=== PATIENT | male | born 1955 | race Caucasian/White ===

== ENCOUNTER → 2019-04-28 | Outpatient (REF) | payer BC ==
[2019-04-28 13:47] LABS: APPEARANCE, URINE CLEAR (CLEAR); BACTERIA, URINE AUTO NEGATIVE (NEGATIVE); BILIRUBIN, URINE AUTO NEGATIVE (NEGATIVE); BLOOD, URINE BLOOD NEGATIVE (NEGATIVE); COLOR, URINE YELLOW (YELLOW); GLUCOSE, URINE (UA) AUTO NEGATIVE (NEGATIVE); KETONE, URINE AUTO NEGATIVE (NEGATIVE); LEUKOCYTE ESTERASE, URINE AUTO NEGATIVE (NEGATIVE); MUCUS, URINE SMALL (NEGATIVE); NITRITE, URINE AUTO NEGATIVE (NEGATIVE); PROTEIN, URINE AUTO NEGATIVE (NEGATIVE); RBC, URINE AUTO 0 /HPF (0-3); SPECIFIC GRAVITY URINE AUTO 1.025 (1.002-1.035); SQUAMOUS EPITHELIAL CELL UR AU 0 /HPF (0-6); UROBILINOGEN, URINE AUTO 0.2 mg/dL (0.0-2.0); WBC, URINE AUTO 1 /HPF (0-3)
== END ==
LOC: M SMT 13:07
PROVIDERS: ATTEND Nurse Practitioner Women's Health
DX: R97.20 Elevated prostate specific antigen [PSA] (principal); R35.0 Frequency of micturition

== ENCOUNTER → 2019-05-05 | Outpatient (CLI) | payer BC ==
--- NOTE | 2019-05-05 13:01 | REPPI ---
Prostate sonography: History: Elevated PSA. Sonographic findings: Trans rectal prostate sonography demonstrates unremarkable seminal vesicles. Prostate gland is heterogeneously enlarged with calcifications and cystic changes noted. Glandular dimensions are measured at 4.8 x 4.8 x 5.2 cm with a calculated glandular volume of 62.0 ml. There is a 7 mm hypoechoic area in the left mid lateral gland. Transrectal sonographic guidance is provided to Dr. English who performed trans rectal ultrasound guided needle biopsy procedure . Electronically Signed by Kb Austin MD 05/05/2019 12:52 P
== END ==
LOC: M SMT PRO 10:19
PROVIDERS: ATTEND Urology
DX: C61 Malignant neoplasm of prostate (principal)
CPT/HCPCS: 76872; 76942; G0416

== ENCOUNTER → 2019-07-02 | Outpatient (CLI) | payer OTHER ==
[~2019-07-02] MED LIST: ATOR40TA75 PO; OMEP-218 PO; SILD100T PO
--- NOTE | 2019-07-02 13:25 | RADONC ---
RADIATION ONCOLOGY CONSULTATION NOTE BY TELEPHONE This is a telemedicine visit. The patient was informed of the risks including security breech, technological failure, inability to perform a comprehensive physical exam which could delay or prevent an accurate diagnosis, and potential complications from treatment decisions rendered over a telemedicine platform. The patient understands and consented to the use of telehealth services phone only. DATE: 07/02/2019 CHART #: [id number] DIAGNOSIS: Prostate cancer. STAGE: I, T1c, N0, M0, Elena score 6 (3-3), grade group 1, PSA 4.7. ECOG PERFORMANCE STATUS: 0. CONSULTATION NOTE: Mr. Cartwright is a very pleasant 64-year-old white male with the diagnosis of what appears to be a stage I, T1c, N0, M0, moderately differentiated, Chilmark score 6 (3-3) adenocarcinoma of the prostate, grade group 1, with an initial PSA of 4.7, who is presenting to us today for consideration of definitive external beam radiation therapy with IMRT/IGRT. HISTORY OF PRESENT ILLNESS: The patient was in his usual state of health, but was found to have an elevated PSA which reached a level of 4.7. On 05/05/2019, the patient underwent prostatic needle biopsy and pathology revealed a Elnea score 6 (3-3) adenocarcinoma of the left base of the prostate involving 5-10% of the core. The patient was seen by his urologist and active surveillance was discussed. Unfortunately, his father had prostate cancer and he is quite nervous and does not wish to undergo surveillancel, but wants active treatment with external beam radiation. PAST MEDICAL HISTORY: The patient's past medical history is positive for erectile dysfunction. He has a history of GERD. He has hypercholesterolemia and obstructive sleep apnea. He had an umbilical hernia and a hydrocele of the testis. The patient had a vasectomy in the past. ALLERGIES: The patient has NO KNOWN DRUG ALLERGIES. SOCIAL HISTORY: The patient does not smoke cigarettes nor abuse alcohol. FAMILY HISTORY: The patient's family history is positive for father with prostate cancer, a paternal uncle with colon cancer, another paternal uncle with prostate cancer, and a sister with leukemia. REVIEW OF SYSTEMS: The patient's review of systems is noncontributory. Denies nausea, vomiting, fevers, chills, night sweats, diplopia, headaches, anxiety or depression, anorexia, weight loss, visual disturbances, chest pain, urinary or bowel difficulties, bone pain, or neurological problems. PHYSICAL EXAMINATION: Physical examination was deferred as this was a telephone consultation as per COVID-19 precautions. MEDICAL NECESSITY: IMRT/IGRT is clinically indicated for the highly conformal dose planning required. The target volume is in close proximity to critical structures, such as the rectum, bladder, small bowel, and femoral heads. The volume of interest must be covered with narrow margins to adequately protect immediately adjacent structures. The plan requires interpretation of complex testing such as CT localization. As noted above, special planning (IMRT) and localizing (IGRT) is required and essential to maximally protect sensitive normal tissue structures which cannot be accomplished using conventional 3-dimensional planning. ASSESSMENT: I do believe this patient is a candidate for external beam radiation therapy and have so informed him. I have discussed with the patient in detail the potential benefits as well as possible acute and chronic sequelae of external beam radiation therapy. We have discussed logistics of treatment planning, simulation and subsequent fractionated daily radiation treatments. The patient is scheduled for placement of fiducial markers on 07/07/2019. In light of this, we will be scheduling him for simulation and initiation of treatment planning approximately 2-3 weeks post fiducial marker placement. Thank you for allowing us to participate in the care of this very pleasant gentleman. If I can be of any further assistance, please feel free to contact me at anytime. As always, warm regards. cc: MD Benjy Najera MD
== END ==
LOC: M ONCR 09:02
PROVIDERS: ATTEND Radiology Radiation Oncology
DX: C61 Malignant neoplasm of prostate (principal)

== ENCOUNTER → 2019-07-07 | Outpatient (CLI) | payer MEDICARE, OTHER ==
--- NOTE | 2019-07-07 12:53 | REPPI ---
TRANSRECTAL PROSTATE ULTRASOUND FOR FIDUCIARY MARKER PLACEMENT: Transrectal prostate ultrasound guidance was provided for Dr. English, who placed three fiduciary markers, one in the right base, one in the left base, and one in the midline at the apex. Electronically Signed by Julito Fallon MD 07/07/2019 04:59 P
== END ==
LOC: M SMT PRO 09:30
PROVIDERS: ATTEND Urology
DX: C61 Malignant neoplasm of prostate (principal)
CPT/HCPCS: 55876; 76872; 76942; A4648

== ENCOUNTER 2019-08-14 08:43 | Outpatient (RCR) | payer MEDICARE, OTHER ==
--- NOTE | 2019-07-24 08:13 | RADONC ---
RADIATION ONCOLOGY SIMULATION NOTE DATE: 07/21/2019 CHART #: [id number] Mr. Cartwright was taken to the CT scan for CT simulation of his prostate field. CT was accomplished without difficulty or discomfort. Radiation treatment planning is underway and radiation treatments will begin subsequently. An immobilization device was created and will be used throughout the course of treatment. It was created without difficulty or discomfort. I was physically present throughout the course of CT simulation.
--- NOTE | 2019-08-05 07:38 | RADONC ---
RADIATION ONCOLOGY PROGRESS NOTE DATE: 08/03/2019 CHART #: [id number] Mr. Cartwright underwent his first fraction of radiation today to his prostate for a dose of 180 cGy. Radiation was tolerated without difficulty or discomfort. REVIEW OF SYSTEMS: The patient's review of systems is noncontributory. Denies nausea, vomiting, fevers, chills, night sweats, diplopia, headaches, anxiety or depression, anorexia, weight loss, visual disturbances, chest pain, urinary or bowel difficulties, bone pain, or neurological problems. PHYSICAL EXAMINATION: The patient's physical exam clearly showed no evidence of radiation change present since this was his first treatment. The remainder of his physical exam was also unchanged. Mr. Cartwright underwent his first fraction of radiation and tolerated it well. Treatments will continue as scheduled.
--- NOTE | 2019-08-14 17:27 | RADONC ---
RADIATION ONCOLOGY PROGRESS NOTE DATE: 08/11/2019 CHART NUMBER: [id number] PROGRESS NOTE: Mr. Cartwright is presently at a dose of 1087 cGy to his prostate and seminal vesicles and is tolerating treatment quite well at this point with no complaints related to his radiation therapy. He is having no urinary or bowel difficulties. No bone pain. REVIEW OF SYSTEMS: The patient's review of systems is noncontributory. Denies nausea, vomiting, fevers, chills, night sweats, diplopia, headaches, anxiety or depression, anorexia, weight loss, visual disturbances, chest pain, urinary or bowel difficulties, bone pain, or neurological problems. PHYSICAL EXAMINATION: The patient's skin is in good condition with no evidence of radiation change present. There is no moist or dry desquamation. The remainder of his physical exam remains unchanged. Mr. Cartwright is tolerating treatments quite well and radiation will continue as scheduled.
[2019-08-26] MEDS ORDERED: FLOM0.4C39 PO (10:43)
== END 2019-08-16 ==
LOC: M ONCR 08:43
PROVIDERS: ATTEND Radiology Radiation Oncology
DX: C61 Malignant neoplasm of prostate (principal)

== ENCOUNTER → 2019-09-15 | Outpatient (RCR) | payer MEDICARE ==
[2019-08-18 09:18] LABS: APPEARANCE, URINE CLEAR (CLEAR); BACTERIA, URINE AUTO NEGATIVE (NEGATIVE); BILIRUBIN, URINE AUTO NEGATIVE (NEGATIVE); BLOOD, URINE BLOOD NEGATIVE (NEGATIVE); COLOR, URINE YELLOW (YELLOW); GLUCOSE, URINE (UA) AUTO NEGATIVE (NEGATIVE); KETONE, URINE AUTO NEGATIVE (NEGATIVE); LEUKOCYTE ESTERASE, URINE AUTO NEGATIVE (NEGATIVE); NITRITE, URINE AUTO NEGATIVE (NEGATIVE); PROTEIN, URINE AUTO NEGATIVE (NEGATIVE); RBC, URINE AUTO 0 /HPF (0-3); SPECIFIC GRAVITY URINE AUTO 1.017 (1.002-1.035); SQUAMOUS EPITHELIAL CELL UR AU 0 /HPF (0-6); UROBILINOGEN, URINE AUTO 0.2 mg/dL (0.0-2.0); WBC, URINE AUTO 0 /HPF (0-3)
--- NOTE | 2019-08-23 08:06 | RADONC ---
RADIATION ONCOLOGY PROGRESS NOTE DATE: 08/17/2019 CHART NUMBER: [id number] PROGRESS NOTE: Mr. Cartwright is presently at a dose of 1800 cGy to his prostate and seminal vesicles and is tolerating treatments quite well at this point with no significant complaints related to his radiation therapy. He does have some mild fatigue and mild dysuria. He has no bowel problems. REVIEW OF SYSTEMS: The patient's review of systems is positive for some mild dysuria and fatigue but is otherwise noncontributory. Denies nausea, vomiting, fevers, chills, night sweats, diplopia, headaches, anxiety or depression, anorexia, weight loss, visual disturbances, chest pain, urinary or bowel difficulties, bone pain, or neurological problems. PHYSICAL EXAMINATION: The patient's skin is in good condition with no evidence of radiation change present. There is no moist or dry desquamation. The remainder of his physical exam remains unchanged. Mr. Cartwright is tolerating treatments quite well and radiation will continue as scheduled.
--- NOTE | 2019-08-27 21:45 | RADONC ---
RADIATION ONCOLOGY PROGRESS NOTE DATE: 08/27/2019 CHART NUMBER: [id number] Mr. Cartwright is presently at a dose of 2700 cGy to his prostate and seminal vesicles and is tolerating treatments quite well at this point with no significant difficulties related to his radiation therapy. He is having no urinary or bowel problems and no bone pain. The patient's review of systems is noncontributory. He denies nausea, vomiting, fevers, chills, night sweats, diplopia, headaches, anxiety or depression, anorexia, weight loss, visual disturbances, chest pain, urinary or bowel difficulties, bone pain, or neurological problems. PHYSICAL EXAMINATION: The patient's skin is in good condition with no evidence of radiation change present. There is no moist or dry desquamation. The remainder of his physical exam remains unchanged. Mr. Cartwright is tolerating treatments quite well and radiation will continue as scheduled.
--- NOTE | 2019-09-02 09:38 | RADONC ---
RADIATION ONCOLOGY PROGRESS NOTE DATE OF SERVICE: 08/31/2019 CHART NUMBER: [id number]. PROGRESS NOTE: Mr. Cartwright is presently at a dose of 3600 cGy to his prostate and seminal vesicles and is tolerating treatments quite well at this point with no complaints related to his radiation therapy. He has no significant urinary or bowel difficulties and no bone pain. REVIEW OF SYSTEMS: The patient's review of systems is noncontributory. He denies nausea, vomiting, fevers, chills, night sweats, diplopia, headaches, anxiety or depression, anorexia, weight loss, visual disturbances, chest pain, urinary or bowel difficulties, bone pain, or neurological problems. PHYSICAL EXAMINATION: The patient's skin is in good condition with no evidence of moist or dry desquamation. The remainder of his physical exam remains unchanged. Mr. Cartwright is tolerating treatments quite well, and radiation will continue as scheduled.
--- NOTE | 2019-09-09 13:55 | RADONC ---
RADIATION ONCOLOGY DATE OF SERVICE: 09/05/2019 Mr. Cartwright is a 64-year-old gentleman who carries a diagnosis of prostate CA. So far, he has received a dose of 4500 cGy, 25 of 44 fractions. He has with urinary frequency and he was prescribed Flomax last week. He seems to be a better, however, nocturia is still 5-6 times. REVIEW OF SYSTEMS: Other than urinary frequency, he denies dysuria, hematuria,or incontinence. He denies nausea, vomiting, headache. No bowel problems. PHYSICAL EXAMINATION: He is in good general condition. Overall, he is tolerating treatment very well and the radiation therapy will continue as planned. MTDD
[~2019-09-15] MED LIST changes: +FLOM0.4C39 PO
--- NOTE | 2019-09-17 08:44 | RADONC ---
RADIATION ONCOLOGY DATE OF SERVICE: 09/14/2019 Mr. Cartwright is a 64-year-old gentleman who carries the diagnosis of prostate CA. So far, he has received dose of 5400 cGy in thirty fractions. His urinary frequency seems to be improved with the Flomax. However, he said he is experiencing mild dysuria and fatigue. REVIEW OF SYSTEMS: As mentioned, mild dysuria. No hematuria or incontinence. He has no bowel problems. He said he worked hard during a weekend. PHYSICAL EXAMINATION: Physical examination unchanged. Well developed, nourished. ASSESSMENT AND PLAN: Regarding dysuria, I advised drink increased liquid intake, including cranberry juice; and if the dysuria persists, will do the test for infection. The radiation therapy will continue as planned. MTDD
== END ==
LOC: M ONCR 08-17 08:43
PROVIDERS: ATTEND Radiology Radiation Oncology
DX: C61 Malignant neoplasm of prostate (principal); Z79.899 Other long term (current) drug therapy

== ENCOUNTER 2019-10-08 08:40 | Outpatient (RCR) | payer MEDICARE ==
--- NOTE | 2019-09-29 16:12 | RADONC ---
RADIATION ONCOLOGY PROGRESS NOTE DATE: 09/21/2019 CHART NUMBER: [id number] Mr. Cartwright is presently at a dose of 6120 cGy to his prostate and is tolerating treatments quite well at this point with no significant difficulties related to his radiation therapy other than some urinary frequency and dysuria. The patient's review of systems is positive for some dysuria and urinary frequency but is otherwise noncontributory. He denies nausea, vomiting, fevers, chills, night sweats, diplopia, headaches, anxiety or depression, anorexia, weight loss, visual disturbances, chest pain, bowel difficulties, bone pain, or neurological problems. PHYSICAL EXAMINATION: The patient's skin is in good condition with no evidence of radiation change present. There is no moist or dry desquamation. The remainder of his physical exam remains unchanged. Mr. Cartwright is tolerating treatments quite well and radiation will continue as scheduled.
--- NOTE | 2019-10-05 17:05 | RADONC ---
RADIATION ONCOLOGY PROGRESS NOTE DATE: 10/05/2019 CHART NUMBER: [id number] PROGRESS NOTE: Mr. Cartwright is presently at a dose of 7020 cGy to his prostate and is tolerating treatments quite well at this point with no complaints related to his radiation therapy. He is having no urinary or bowel difficulties and no bone pain. REVIEW OF SYSTEMS: The patient's review of systems is noncontributory. Denies nausea, vomiting, fevers, chills, night sweats, diplopia, headaches, anxiety or depression, anorexia, weight loss, visual disturbances, chest pain, urinary or bowel difficulties, bone pain, or neurological problems. PHYSICAL EXAMINATION: The patient's skin is in good condition with no evidence of moist or dry desquamation. The remainder of his physical exam remains unchanged. Mr. Cartwright is tolerating treatments quite well and radiation will continue as scheduled.
[2019-11-11] MEDS ORDERED: TAMS1CAP17 (08:47)
[2019-11-11] MEDS ORDERED: SILD20TA50 PO (09:22)
[2020-01-15] MEDS ORDERED: SILD20TA50 PO (14:09)
== END 2019-10-16 ==
LOC: M ONCR 08:40
PROVIDERS: ATTEND Radiology Radiation Oncology
DX: C61 Malignant neoplasm of prostate (principal)

== ENCOUNTER → 2019-11-11 | Outpatient (CLI) | payer MEDICARE ==
[~2019-11-11] MED LIST changes: +SILD20TA50 PO; +TAMS1CAP17
== END ==
LOC: M ONCR 08:59
PROVIDERS: ATTEND General Practice
DX: C61 Malignant neoplasm of prostate (principal)

== ENCOUNTER → 2019-12-30 | Outpatient (CLI) | payer MEDICARE ==
--- NOTE | 2019-12-30 16:21 | RADONC ---
Radiation Oncology Hx/FUP Radiation Oncology Hx/FUP Date of Service: Dec 30, 2019 Pt Identifier Johnny Cartwright is a 64 year old male seen for a followup visit today at the department of radiation oncology for a history of low risk prostate cancer T1c Elena 3+3=6 PSA 4.7 who completed EBRT 77.4 Gy in 43 fractions on 10/09/19. Diagnosis/Treatment History Oncologic History PSA history: 04/08/19 4.70 ng/ml 12/23/19 1.09 EBRT 77.4 Gy in 43 fractions 08/03/19-10/09/19 Cut short by 1 fraction due to system wide computer outage Interval History Feels well. No urinary or bowel complaints. Tried off flomax last month, immediately resumed d/t increased nocturia. May try to come off again this month. No bowel or additional complaints. No sexual complaints, viagra helpful. Current Therapy Surveillance Stage Low risk prostate cancer Social History: Non-smoker Non-drinker Allergies / Meds Home Meds Active Scripts Sildenafil Citrate (Sildenafil) 20 Mg Tablet, 20 MG PO DAILY for erectile dysfunction for 30 Days, #60 TAB Prov:BERYL GUTIERREZ MD 11/11/19 Tamsulosin HCl (Flomax) 0.4 Mg Capsule, 0.4 MG PO DAILY for 30 Days, #30 CAP 5 Refills Prov:Julito Landers 08/26/19 Reported Medications Tamsulosin Hcl (Tamsulosin HCl) 0.4 Mg Capsule 11/11/19 Sildenafil Citrate (Sildenafil Citrate) 100 Mg Tablet, 100 MG PO, TAB 07/02/19 Atorvastatin Calcium (Atorvastatin Calcium) 40 Mg Tablet, 40 MG PO DAILY, TAB 07/02/19 Omeprazole (Omeprazole) 20 Mg Capsule.dr, 20 MG PO DAILY, CAP 07/02/19 Review of Systems Review of Systems Constitutional: Denies: ROS Unabtainable, Chills, Fever, Malaise, Night Sweats, Weakness, Fatigue, Weight Loss, Lethargy, Normal appetite, Other symptoms Eyes: Denies: Pain, Vision change, Conjunctivae inflammation, Eyelid inflammation, Redness, Other HEENT: Denies: Head Aches, Ear Pain, Dysphagia, Sinus Congestion, Post Nasal Drip, Sore Throat, Epistaxis, Other Symptoms Skin: Denies: Rash, Lesions, Jaundice, Bruising, Other Pulmonary: Denies: Dyspnea, Cough, Pleuritic Chest Pain, Other Symptoms Cardiovascular: Denies: Chest Pain, Palpitations, Orthopnea, Paroxysmal Noc. Dyspnea, Edema, Lt Headedness, Other Symptoms Gastrointestinal: Denies: Nausea, Vomiting, Abdominal Pain, Diarrhea, Constipation, Melena, Hematochezia, Other Symptoms Genitourinary: Denies: Dysuria, Frequency, Incontinence, Hematuria, Retention, Other Symptoms Hematologic: Denies: Bruising, Bleeding Excessively, Petecchia, Purpura, Enlarged Lymph Nodes, Other Hematologic Endocrine: Denies: Polydipsia, Polyphagia, Polyuria, Heat Intolerance, Cold Intolerance, Other Endocrine Sx Musculoskeletal: Denies: Neck pain, Shoulder pain, Arm pain, Back pain, Hand pain, Leg pain, Foot pain, Joint pain, Muscle pain, Spasms, Gout, Joint sweling, Muscle stiffness, Midthoracic pain, Other Neurological: Denies: Weakness, Numbness, Incoordination, Change in Speech, Confusion, Seizures, Other Symptoms Psych: Denies: Mood Normal, Anxiety, Depression, Memory Issues, Thoughts of Self Harm, Anger, Thoughts of harming Other, Other Psych Physical Examination Vital Signs T 98.5 P 102 RR 18 BP 118/81 O2 92% Pain 0 Fatigue 0 General Exam: Positive: Alert, Cooperative; Negative: No Acute Distress Eye Exam: Positive: PERRLA, EOMI ENT EXAM: Positive: Atraumatic Neck Exam: Positive: Supple Chest Exam: Positive: Clear to auscultation, Normal air movement Heart Exam: Positive: Rate Normal, Regular Rhythm Abdomen Exam: Positive: Normal bowel sounds, Soft; Negative: Tenderness Extremity Exam: Negative: Edema Skin Exam: Positive: Nl turgor and temperature; Negative: Rash Neuro Exam: Positive: Normal Gait, Normal Speech, Cranial Nerves 3-12 NL Psych Exam: Positive: Mental status NL, Mood NL; Negative: Anxiety Other Physical Findings Deferred given downtrending PSA Diagnostic and Laboratory Diagnostic Review Radiologic images, relevant labs and pathology reports were personally reviewed and discussed with Mr. Cartwright. Assessment and Plan Impression Assessment Mr. Cartwright is a 64 year old male with a history of low risk prostate cancer T1c Merna 3+3=6 PSA 4.7 who completed EBRT 77.4 Gy in 43 fractions on 10/09/19. He is doing well. PSA response excellent. Continuing flomax which may prove a good superintendent terminal medication for him. He will call for a refill if his attempt to come off it later this month fails. I will see him again in 6 months time with PSA check. Performance Status ECOG 0 Plan 6 months with PSA Mr. Cartwright was encouraged to call with questions or concerns in the interim period. BERYL GUTIERREZ MD Dec 30, 2019 16:21
== END ==
LOC: M ONCR 13:57
PROVIDERS: ATTEND General Practice
DX: C61 Malignant neoplasm of prostate (principal)

== ENCOUNTER → 2020-06-29 | Outpatient (CLI) | payer MEDICARE ==
--- NOTE | 2020-06-29 15:37 | RADONC ---
Radiation Oncology Hx/FUP Radiation Oncology Hx/FUP Date of Service: Jun 29, 2020 Pt Identifier Johnny Cartwright is a 65 year old male seen for a followup visit today at the department of radiation oncology for a history of T1c Elena 3+3=6 PSA 4.7 who completed EBRT 77.4 Gy in 43 fractions on 10/09/19. Diagnosis/Treatment History Oncologic History PSA history: 04/08/19 4.70 ng/ml 12/23/19 1.09 06/03/20 0.86 EBRT 77.4 Gy in 43 fractions 08/03/19-10/09/19 Cut short by 1 fraction due to system wide computer outage Interval History Johnny feels well. He has no bowel issues, no diarrhea or hematochezia. He does have 2-4x nocturia which is stable and not overly bothersome. He thinks this is exacerbated at times by his work scheduled as well as his NADIA. Appetite is good and weight stable. Current Therapy Surveillance Stage Low risk prostate cancer Social History: Non-smoker Non-drinker Allergies / Meds Home Meds Active Scripts Tamsulosin HCl (Flomax) 0.4 Mg Capsule, 0.4 MG PO DAILY, #90 CAP 3 Refills Prov:BERYL GUTIERREZ MD 02/29/20 Sildenafil Citrate (Sildenafil) 20 Mg Tablet, 20 MG PO DAILY for erectile dysfunction, #90 TAB 5 Refills Prov:BERYL GUTIERREZ MD 01/15/20 Reported Medications Sildenafil Citrate (Sildenafil Citrate) 100 Mg Tablet, 100 MG PO, TAB 07/02/19 Atorvastatin Calcium (Atorvastatin Calcium) 40 Mg Tablet, 40 MG PO DAILY, TAB 07/02/19 Omeprazole (Omeprazole) 20 Mg Capsule.dr, 20 MG PO DAILY, CAP 07/02/19 Review of Systems Review of Systems Constitutional: Denies: Fatigue, Weight Loss Eyes: Denies: Pain HEENT: Denies: Head Aches Pulmonary: Denies: Dyspnea, Cough Cardiovascular: Denies: Chest Pain Gastrointestinal: Denies: Nausea, Constipation Genitourinary: Reports: Frequency; Denies: Dysuria, Retention Hematologic: Denies: Bruising Musculoskeletal: Denies: Neck pain, Back pain Neurological: Denies: Weakness, Numbness Psych: Reports: Mood Normal Physical Examination Vital Signs Wt 204 lbs T 98.1 P 94 RR 18 BP 121/75 O2 95% Pain 0 Fatigue 0 General Exam: Positive: Alert, Cooperative, No Acute Distress Eye Exam: Positive: PERRLA, EOMI ENT EXAM: Positive: Atraumatic Neck Exam: Positive: Supple Chest Exam: Positive: Clear to auscultation Heart Exam: Positive: Rate Normal, Regular Rhythm Abdomen Exam: Positive: Soft Extremity Exam: Negative: Edema Skin Exam: Positive: Nl turgor and temperature Neuro Exam: Positive: Normal Gait, Normal Speech, Cranial Nerves 3-12 NL Psych Exam: Positive: Mental status NL Diagnostic and Laboratory Diagnostic Review Radiologic images, relevant labs and pathology reports were personally reviewed and discussed with Mr. Cartwright. Assessment and Plan Impression Assessment Mr. Cartwright is a 65 year old male with a history of T1c [place] 3+3=6 PSA 4.7 who completed EBRT 77.4 Gy in 43 fractions on 10/09/19. Johnny is doing well. He continues on flomax for his stable nocturia and frequency. He is satisfied with his urinary function at this time. He does not need refills today. He has no bowel sequelae of treatment. His PSA continues to trend downward. As he is not following with anyone else for the prostate cancer, I will see him again in 6 months time with a PSA check. Performance Status ECOG 0 Plan 6 months with PSA Mr. Cartwright was encouraged to call with questions or concerns in the interim period. Billing Statement Total time of [21] minutes was spent preparing for the visit [1], obtaining HPI [3], examining the patient [1], reviewing diagnostic tests [1], discussing management options [6], coordinating care [1], and writing this note [8]. BERYL GUTIERREZ MD Jun 29, 2020 15:37
== END ==
LOC: M ONCR 13:57
PROVIDERS: ATTEND General Practice
DX: C61 Malignant neoplasm of prostate (principal)

== ENCOUNTER → 2021-01-04 | Outpatient (CLI) | payer MEDICARE ==
--- NOTE | 2021-01-04 14:45 | RADONC ---
Radiation Oncology Hx/FUP Radiation Oncology Hx/FUP Date of Service: Jan 04, 2021 Pt Identifier Johnny Cartwright is a 65 year old male seen for a followup visit today at the department of radiation oncology for a history of prostate cancer T1c Randolph 3+3=6 PSA 4.7 who completed EBRT 77.4 Gy in 43 fractions on 10/09/19 Diagnosis/Treatment History Oncologic History PSA history: 04/08/19 4.70 ng/ml 12/23/19 1.09 06/03/20 0.86 12/30/20 0.59 EBRT 77.4 Gy in 43 fractions 08/03/19-10/09/19 Cut short by 1 fraction due to system wide computer outage Interval History Johnny feels entirely well. Working hard at the [employer] in [place]. He continues on flomax has no daytime frequency or dysuria. No nocturia. No BRBPR or problems with bowels. Appetite and energy levels good. Having repair of umbilical hernia in January. Seeing Dr. English in the Winter. Current Therapy Surveillance Stage Low risk prostate cancer Social History: Non-smoker Non-drinker Allergies / Meds Home Meds Active Scripts Tamsulosin HCl (Flomax) 0.4 Mg Capsule, 0.4 MG PO DAILY, #90 CAP 3 Refills Prov:BERYL GUTIERREZ MD 02/29/20 Sildenafil Citrate (Sildenafil) 20 Mg Tablet, 20 MG PO DAILY for erectile dysfunction, #90 TAB 5 Refills Prov:BERYL GTUIERREZ MD 01/15/20 Reported Medications Sildenafil Citrate (Sildenafil Citrate) 100 Mg Tablet, 100 MG PO, TAB 07/02/19 Atorvastatin Calcium (Atorvastatin Calcium) 40 Mg Tablet, 40 MG PO DAILY, TAB 07/02/19 Omeprazole (Omeprazole) 20 Mg Capsule., 20 MG PO DAILY, CAP 07/02/19 Review of Systems Review of Systems Constitutional: Denies: Fatigue Eyes: Denies: Pain HEENT: Denies: Head Aches Pulmonary: Denies: Dyspnea Cardiovascular: Denies: Chest Pain Gastrointestinal: Denies: Abdominal Pain Genitourinary: Denies: Dysuria, Frequency Neurological: Denies: Weakness, Numbness Psych: Denies: Mood Normal Physical Examination Vital Signs Wt 205 lbs T 97 P 93 RR 18 BP 112/73 O2 96% Pain 0 Fatigue 0 General Exam: Alert, Cooperative, No Acute Distress Eye Exam: PERRLA, EOMI ENT EXAM: Atraumatic Neck Exam: Supple Chest Exam: Clear to auscultation Heart Exam: Rate Normal Abdomen Exam: Soft, Hernia (Umbilical hernia ) Extremity Exam: Negative: Edema Skin Exam: Nl turgor and temperature Neuro Exam: Normal Gait, Normal Speech, Cranial Nerves 3-12 NL Psych Exam: Mental status NL Diagnostic and Laboratory Diagnostic Review Radiologic images, relevant labs and pathology reports were personally reviewed and discussed with Mr. Cartwright. Assessment and Plan Impression Assessment Mr. Cartwright is a 65 year old male with a history of prostate cancer T1c Randolph 3+3=6 PSA 4.7 who completed EBRT 77.4 Gy in 43 fractions on 10/09/19. PSA remains low and down-trending. He is doing well with flomax, will renew the script. He can see me in 6 months with PSA. Will contemplate extending to annual follow up at that time if all is well. Performance Status ECOG 0 Plan 6 months with PSA Mr. Cartwright was encouraged to call with questions or concerns in the interim period. Billing Statement Total time of [22] minutes was spent preparing for the visit [1], obtaining HPI [6], examining the patient [1], reviewing diagnostic tests [1], discussing management options [5], coordinating care [2], and writing this note [6]. BERYL GUTIERREZ MD Jan 04, 2021 14:45
== END ==
LOC: M ONCR 12:51
PROVIDERS: ATTEND General Practice
DX: C61 Malignant neoplasm of prostate (principal); Z92.3 Personal history of irradiation

== ENCOUNTER → 2021-07-12 | Outpatient (CLI) | payer MEDICARE, SELFPAY ==
[~2021-07-12] MED LIST changes: +OMEP-173 PO; -OMEP-218 PO
== END ==
LOC: M ONCR 13:02
PROVIDERS: ATTEND General Practice
DX: C61 Malignant neoplasm of prostate (principal); Z92.3 Personal history of irradiation

== ENCOUNTER → 2022-07-12 | Outpatient (CLI) | payer MEDICARE | LOC: M ONCR 13:04 | PROVIDERS: ATTEND General Practice | DX: C61 Malignant neoplasm of prostate (principal); R35.1 Nocturia; Z79.899 Other long term (current) drug therapy; Z92.3 Personal history of irradiation ==

== ENCOUNTER → 2023-07-12 | Outpatient (CLI) | payer MEDICARE | LOC: M ONCR 13:02 | PROVIDERS: ATTEND General Practice | DX: C61 Malignant neoplasm of prostate (principal); Z71.2 Person consulting for explanation of examination or test findings; Z79.899 Other long term (current) drug therapy; Z92.3 Personal history of irradiation ==

== ENCOUNTER → 2024-07-14 | Outpatient (CLI) | payer MEDICARE ==
[~2024-07-14] MED LIST changes: -FLOM0.4C39 PO; +TAMS-18 PO
== END ==
LOC: M ONCR 12:50
PROVIDERS: ATTEND General Practice
DX: C61 Malignant neoplasm of prostate (principal); Z92.3 Personal history of irradiation; Z79.899 Other long term (current) drug therapy